=== PATIENT | female | born 1990 | race Caucasian/White ===

== ENCOUNTER 2017-02-24 05:10 | Emergency (ER) | payer MEDICAID, OTHER ==
[~2017-02-24] VITALS: Ht 162.6 cm; Wt 54.0 kg
[2017-02-24] MEDS ORDERED: TETANUS, DIPHTHERIA, PERTUSSIS VAC/PF 0.5ML (>7YR OLD) IM ONE (06:15)
[2017-02-24] MEDS ORDERED: ACETAMINOPHEN 500MG TABLET PO ONE (06:15)
[2017-02-24] MEDS ORDERED: LIDOCAINE HCL 1% 20ML VIAL (Pyxis) INJ INFIL ONE (06:45)
[2017-02-24 08:34] VITALS: BP 120/73
== END 2017-02-24 09:07 | disposition home or self-care (01) ==
LOC: ER 05:10
DX: S01.01XA Laceration without foreign body of scalp, initial encounter (principal); Y08.89XA Assault by other specified means, initial encounter; Y93.89 Activity, other specified; Y92.89 Other specified places as the place of occurrence of the external cause; Y99.8 Other external cause status
CPT/HCPCS: 12002; 70450; 90471; 90715; 99284; J3490; X7700; Z7610

== ENCOUNTER 2020-11-29 01:33 | Emergency (ER) | payer MEDICAID ==
[~2020-11-29] VITALS: Ht 157.5 cm; Wt 75.0 kg
[2020-11-29] MEDS ORDERED: IBUPROFEN 600MG TABLET PO ONE (03:00)
[2020-11-29] MEDS ORDERED: IBUP-2029 MT (03:40)
[2020-11-29 03:58] VITALS: BP 130/67
== END 2020-11-29 04:59 | disposition home or self-care (01) ==
LOC: ER 01:33
DX: S20.219A Contusion of unspecified front wall of thorax, initial encounter (principal); R03.0 Elevated blood-pressure reading, without diagnosis of hypertension; V49.49XA Driver injured in collision with other motor vehicles in traffic accident, initial encounter; Y93.89 Activity, other specified; Y92.488 Other paved roadways as the place of occurrence of the external cause
CPT/HCPCS: 71045; 99283

== ENCOUNTER 2021-09-23 15:24 | Inpatient (IN) | payer OTHER ==
[~2021-09-23] VITALS: Ht 157.5 cm; Wt 86.2 kg
[~2021-09-23 15:24] MED LIST: IBUP-2029 MT
[2021-09-23] MEDS ORDERED: NALOXONE HCL 0.4 MG/ML 1ML VIAL IM PRN (16:00)
[2021-09-23] MEDS ORDERED: LACTATED RINGERS 1,000 ML IV SCH (16:00)
[2021-09-23] MEDS ORDERED: LIDOCAINE HCL 1% 20ML VIAL (Pyxis) INJ INFIL SCH (16:00)
[2021-09-23] MEDS ORDERED: DEXT 5%/LR + PITOCIN 20UNITS/L 1,000 ML IV SCH (16:00)
[2021-09-23 16:42] LABS: HEMATOCRIT. 35.9 % (36.0-48.0); HEMOGLOBIN. 12.1 g/dL (12.0-16.0); MEAN CORPUSCULAR HEMOGLOBIN 32.3 pg (28.0-32.0); MEAN CORPUSCULAR VOLUME 95.8 fL (81.0-99.0); MEAN PLATELET VOLUME 7.7 fl (7.4-10.4); PLATELET 250 x1000/uL (130-400); RED BLOOD CELL COUNT 3.75 mill/uL (4.2-5.4); RED CELL DISTRIBUTION WIDTH 13.7 % (11.6-14.6)
[2021-09-23] MEDS ORDERED: OXYCODONE HCL/ACETAMINOPHEN 5/325MG TABLET PO PRN (16:45)
[2021-09-23] MEDS ORDERED: RHO(D) IMMUNE GLOBULIN 300 MCG/SYR IM PRN (16:45)
[2021-09-23] MEDS ORDERED: IBUPROFEN 800MG TABLET PO PRN (16:45)
[2021-09-23] MEDS ORDERED: IBUPROFEN 400MG TABLET PO PRN (16:45)
[2021-09-23 16:52] LABS: PARTIAL THROMBOPLASTIN TIME 27.1 sec (23.4-31.0); PROTHROMBIN TIME 10.5 sec (9.6-11.0)
[2021-09-23] MEDS: DEXT 5%/LR + PITOCIN 20UNITS/L 1,000 ML IV SCH ×2 (17:02→17:07)
[2021-09-23 17:17] LABS: PLATELET ESTIMATE NORMAL
[2021-09-23 17:22] LABS: HEPATITIS B SURFACE ANTIGEN NEGATIVE
[2021-09-23 19:50] VITALS: BP 103/60
[2021-09-23] MEDS ORDERED: TETANUS, DIPHTHERIA, PERTUSSIS VAC/PF 0.5ML (>10YR OLD) IM ONE (22:15)
[2021-09-23] MEDS ORDERED: INFLUENZA VACCINE 05/PF 0.5 ML SYRINGE IM ONE (22:15)
[2021-09-23 23:35] LABS: CLARITY URINE CLEAR (CLEAR); COLOR URINE RED (YELLOW); KETONES URINE 1+ (NEGATIVE); LEUKOCYTE ESTERASE URINE TRACE (NEGATIVE); NITRITE URINE NEGATIVE (NEGATIVE); OCCULT BLOOD URINE 3+ (NEGATIVE); PROTEIN URINE TRACE (NEGATIVE); SPECIFIC GRAVITY URINE 1.011 (1.005-1.030); UROBILINOGEN URINE 0.2 E.U./dL (0.2-1.0)
[2021-09-23 23:56] LABS: *AMPHETAMINES SCREEN URINE NEGATIVE (NEGATIVE); *BARBITURATES SCREEN URINE NEGATIVE (NEGATIVE); *BENZODIAZEPINES SCREEN URINE NEGATIVE (NEGATIVE); *COCAINE SCREEN URINE NEGATIVE (NEGATIVE); METHADONE URINE SCREEN NEGATIVE (NEGATIVE); OPIATES URINE SCREEN NEGATIVE (NEGATIVE); PHENCYCLIDINE URINE SCREEN NEGATIVE (NEGATIVE)
[2021-09-24] LABS: CANNABINOID URINE SCREEN PRESUMTIVE POSITIVE (NEGATIVE)
[2021-09-24 04:00] VITALS: BP 113/68
[2021-09-24 07:18] LABS: BASOPHILS % 0.3 % (0.0-2.0); EOSINOPHILS % 0.4 % (0.0-5.0); HEMATOCRIT. 31.6 % (36.0-48.0); LYMPHOCYTES % 18.4 % (20.0-50.0); MEAN CORPUSCULAR HEMOGLOBIN 33.6 pg (28.0-32.0); MEAN CORPUSCULAR VOLUME 96.3 fL (81.0-99.0); MEAN PLATELET VOLUME 7.5 fl (7.4-10.4); MONOCYTES % 7.1 % (2.0-8.0); NEUTROPHILS % 73.8 % (40.0-76.0); PLATELET 215 x1000/uL (130-400); RED BLOOD CELL COUNT 3.28 mill/uL (4.2-5.4); RED CELL DISTRIBUTION WIDTH 13.6 % (11.6-14.6)
[2021-09-24 08:00] VITALS: BP 121/68
[2021-09-24] MEDS: FERROUS SULFATE 325MG TABLET PO SCH ×2 (08:40→13:09)
[2021-09-24] MEDS ORDERED: PRENATAL VIT/FE FUMARATE/FA TABLET PO SCH (09:00)
[2021-09-24 16:20] VITALS: BP 109/56
== END 2021-09-24 20:00 | disposition left against medical advice (07) | DRG 560 ==
LOC: 8 EST LDRP 15:24 → OBSVTOIN 15:53 → 8EST 18:00
PROVIDERS: ADMIT Obstetrics & Gynecology; ATTEND Obstetrics & Gynecology
PROC: 10E0XZZ Delivery of Products of Conception, External Approach (ICD-10-PCS; principal; 2021-09-24)
DX: O80 Encounter for full-term uncomplicated delivery (principal); Z37.0 Single live birth; Z20.822 Contact with and (suspected) exposure to COVID-19; Z3A.39 39 weeks gestation of pregnancy
CPT/HCPCS: 36415; 80305; 80349; 81003; 85025; 86592; 86703; 86762; 86850; 86900; 87340; 87426; 90686; 90715; 99281; G0378; J2590; J3490